=== PATIENT | male | born 1955 | race Caucasian/White ===

== ENCOUNTER 2017-01-29 10:17 | Day surgery (SDC) | payer MEDICARE ==
[2017-01-28 10:28] VITALS: BMI 33.7
[2017-01-29] MEDS ORDERED: Gadobenate Dimeglumine 529 MG/1 ML (20ML VIAL) ONE (14:15)
--- NOTE | 2017-01-29 17:02 | MRI ---
MRI LUMBAR SPINE WITH AND WITHOUT CONTRAST HISTORY: Lumbar pain. Lumbar radiculopathy. No history of lumbar surgery. TECHNIQUE: Multiplanar, multisequential imaging of the lumbar spine obtained. Post contrast images were obtain ed with administration of 20 mL of MultiHance IV. FINDINGS: Lumbar vertebrae maintain height and alignment. There are degenerative changes notes with small ant erior osteophytes. Endplate deformity is seen at several levels, consistent with Schmorl's nodes. These are especially pronounced at the L3-L4 level, where there are small nodes seen involving the i nferior endplate of L3 and the superior endplate of L4. There are degenerative disk changes at all levels with loss of disk space height being most pronounced at L5-S1. At L1-L2, there is a mild diffuse disk bulge, slightly more pronounced paracentrally to the left. T his flattens the anterior thecal sac. There is facet arthrosis and hypertrophy. No significant brittany tral canal or foraminal stenosis identified. At L2-L3, broad-based disk bulge is more prominent. Evidence of annular fissure. Facet and ligamen tous hypertrophy is moderate. These changes result in mild central canal stenosis. At L3-L4, diffuse disk bulge is present. Moderate facet and ligamentous hypertrophy. Mild to moder ate central canal stenosis. Right foraminal narrowing secondary to asymmetric disk bulge extending into the right foramina and possible impingement on the exiting right L3 nerve root. At L4-L5, diffuse disk bulge flattens the thecal sac. Mild to moderate facet and ligamentous hypert rophy. Mild to moderate central canal stenosis. Mild bilateral foraminal encroachment due to diffu se disk bulge and facet hypertrophy. At L5-S1,broad-based bulge flattens the anterior thecal sac. Facet hypertrophy. Mild central canal stenosis. Bilateral foraminal stenosis secondary to disk osteophyte complex and facet hypertrophy. This foraminal encroachment is probably more prominent on the right. No abnormal enhancement identified. IMPRESSION: 1. There are mild to moderate degenerative changes at the lumbar spine with multilevel degenerative disk changes, as described. 2. Mild to moderate central canal stenosis at L2-L3 and at L3-L4, as described. 3. Foraminal encroachment at several levels, as described above. 4. There is ectasia of the abdominal aorta with an area of saccular aneurysmal dilatation in the lo wer abdominal aorta with a diameter measured on sagittal imaging at up to 3.4 cm. Consider dedicate d aortic evaluation. POS: [facility]
== END 2017-01-29 14:55 ==
LOC: SDC/OP 10:17
PROVIDERS: ATTEND Anesthesiology Pain Medicine
DX: M48.06 Spinal stenosis, lumbar region (principal); M54.16 Radiculopathy, lumbar region; Z96.651 Presence of right artificial knee joint; Z90.49 Acquired absence of other specified parts of digestive tract; Z79.82 Long term (current) use of aspirin; Z79.899 Other long term (current) drug therapy; Z98.890 Other specified postprocedural states
CPT/HCPCS: 36415; 72158; 82565; 84520; A9579

== ENCOUNTER 2019-12-22 10:38 | Outpatient (CLI) | payer MEDICARE, OTHER ==
[2019-12-23 12:45] LABS: SARS-CoV-2 MS2 Positive; SARS-CoV-2 N Gene Negative; SARS-CoV-2 S Gene Negative; SARS-CoV-2 by NAA Not Detected (NotDetected); SARS-CoV-2 orf1ab Negative
== END 2019-12-22 10:39 | disposition home or self-care (01) ==
LOC: LABSCS 10:38
PROVIDERS: ATTEND Otolaryngology Plastic Surgery within the Head & Neck
DX: Z01.812 Encounter for preprocedural laboratory examination (principal); Z11.59 Encounter for screening for other viral diseases
CPT/HCPCS: 87635; U0003

== ENCOUNTER 2019-12-25 09:37 | Day surgery (SDC) | payer MEDICARE ==
[2019-12-22 12:16] VITALS: BMI 33.7
[~2019-12-25 09:37] MED LIST: Lidocaine 1% PF 5 ML VIAL ONE; Ondansetron PF 4 MG/2 ML Vial ONE; PROPOFOL 200 MG/20 ML VIAL ONE
[2019-12-25] MEDS ORDERED: Midazolam HCl 2 mg/2 ml Vial ONE (10:48)
[2019-12-25] MEDS ORDERED: Fentanyl 100 MCG/2 ML VIAL ONE (10:48)
[2019-12-25] MEDS ORDERED: Magnevist 469MG/ML 20 ML VIAL ONE (11:38)
--- NOTE | 2019-12-25 11:52 | MRI ---
EXAM: MRI of the brain without and with contrast HISTORY: Dizziness COMPARISON: None TECHNIQUE: Multiplanar multisequence MR images were obtained of the brain without and with IV contras t. FINDINGS: There are scattered foci of high T2/FLAIR signal in the subcortical and periventricular white matter, likely secondary to small vessel ischemic disease. No restricted diffusion. No abnormal enhancement. No hydronephrosis. No extra-axial fluid collection or intracranial hemorrhage. Thin cuts through the internal auditory canals shows a normal appearance of the 7th and 8th nerves. The cochlea and semicircular canals are symmetric. The expected flow voids are present. Corpus callosum, pituitary, and craniocervical junction are within normal limits. The calvarium and overlying soft tissues are unremarkable. The paranasal sinuses and mastoid air cells are well aerated. IMPRESSION: No evidence of acute intracranial abnormality.
== END 2019-12-25 12:53 | disposition home or self-care (01) ==
LOC: SDC/OP 09:37 → EDSTATUS 12:00 → SDC/OP 12:53
PROVIDERS: ATTEND Otolaryngology Plastic Surgery within the Head & Neck
DX: R42 Dizziness and giddiness (principal); H91.8X9 Other specified hearing loss, unspecified ear; J31.0 Chronic rhinitis; F32.9 Major depressive disorder, single episode, unspecified; F17.200 Nicotine dependence, unspecified, uncomplicated; Z79.82 Long term (current) use of aspirin; Z79.899 Other long term (current) drug therapy
CPT/HCPCS: 70553; 82565; A9579; J2250; J2405; J2704; J3010

== ENCOUNTER 2022-04-17 09:54 | Outpatient (CLI) | payer MEDICARE ==
[2022-04-16 09:42] VITALS: BMI 32.5
[2022-04-17] MEDS ORDERED: PROPOFOL 200 MG/20 ML VIAL ONE (13:00)
== END 2022-04-17 14:02 | disposition home or self-care (01) ==
LOC: MRI 09:54 → SDC 14:02
PROVIDERS: ATTEND Anesthesiology Pain Medicine
DX: M48.062 Spinal stenosis, lumbar region with neurogenic claudication (principal); M51.36 Other intervertebral disc degeneration, lumbar region; M47.816 Spondylosis without myelopathy or radiculopathy, lumbar region
CPT/HCPCS: 72148

== ENCOUNTER 2025-02-14 08:00 | Outpatient (CLI) | payer OTHER | END 2025-02-14 08:01 | disposition home or self-care (01) | LOC: PET 08:00 | PROVIDERS: ATTEND Internal Medicine | DX: C34.32 Malignant neoplasm of lower lobe, left bronchus or lung (principal); I71.40 Abdominal aortic aneurysm, without rupture, unspecified | CPT/HCPCS: 78816; A9552 ==

== ENCOUNTER 2025-03-12 09:15 | Outpatient (CLI) | payer OTHER ==
[2025-03-12 10:39] LABS: #Basophils 0.07 10x3/uL (0.0-0.2); #Eosinophils 0.13 10x3/uL (0.0-0.7); #Monocytes 0.53 10x3/uL (0.11-0.59); #Neutrophils 4.75 10x3/uL (1.40-6.50); %Basophils 1.0 % (0.0-1.0); %Eosinophils 1.9 % (0.0-10.0); %Lymphocytes 21.3 % (21.0-51.0); %Monocytes 7.6 % (0.0-10.0); %Neutrophils 67.8 % (42.0-75.0); Hematocrit 46.1 % (42.0-52.0); Hemoglobin 15.3 g/dL (14.0-18.0); Mean Corpuscular Hemoglobin 32.4 pg (27.0-31.0); Mean Corpuscular Volume 97.7 fL (78.0-98.0); Platelet Count 140 10x3/uL (130-400); Red Blood Cell (RBC) Count 4.72 mill/uL (4.70-6.10); White Blood Cell (WBC) Count 7.00 10x3/uL (4.8-10.8)
[2025-03-12 10:47] LABS: Anion Gap 10 mmol/L (10-20); BUN (Urea Nitrogen) 17 mg/dL (8.4-25.7); Calc. Creatinine Clearance 0 mL/min (70-130); Calcium 9.0 mg/dL (7.8-10.44); Carbon Dioxide 31 mmol/L (23-31); Chloride 106 mmol/L (98-107); Glucose 94 mg/dL (80-115); Potassium 4.4 mmol/L (3.5-5.1); Sodium 143 mmol/L (136-145)
[2025-03-12 11:06] LABS: SARS-CoV-2 E Target Negative; SARS-CoV-2 N2 Target Negative; SARS-CoV-2 NAA Rapid Test Not Detected (NotDetected); SARS-CoV-2 RdRP gene Negative
== END 2025-03-12 09:16 | disposition home or self-care (01) ==
LOC: LABBT 09:15
PROVIDERS: ATTEND Student in an Organized Health Care Education/Training Program
DX: Z01.818 Encounter for other preprocedural examination (principal); C34.12 Malignant neoplasm of upper lobe, left bronchus or lung; Z20.822 Contact with and (suspected) exposure to COVID-19
CPT/HCPCS: 71046; 80048; 85025; 86850; 86900; 86901; 93005; U0002; 93010